=== PATIENT | female | born 1980 | race Caucasian/White ===

== ENCOUNTER 2024-10-16 20:08 | Emergency (ER) | payer MEDICAID ==
[2024-10-16 21:05] LABS: BASOPHILS ABSOLUTE AUTO 0.04 K/uL (0.00-0.10); BASOPHILS PERCENT AUTO 0.5 % (0.1-1.3); EOSINOPHILS ABSOLUTE AUTO 0.15 K/uL (0.00-0.40); EOSINOPHILS PERCENT AUTO 1.9 % (0.0-5.4); HEMATOCRIT 39.1 % (34.3-46.0); HEMOGLOBIN 13.9 g/dL (11.2-15.5); IMMATURE GRAN PERCENT AUTO 0.3 % (0.0-0.7); LYMPHOCYTES PERCENT AUTO 28.5 % (11.4-47.7); MEAN CORPUSCULAR HEMOGLOBIN 33.9 pg (31.6-35.5); MEAN CORPUSCULAR HGB CONC 35.5 g/dL (31.6-35.5); MEAN CORPUSCULAR VOLUME 95.4 fL (81.4-99.0); MONOCYTES ABSOLUTE AUTO 0.54 K/uL (0.20-0.90); NEUTROPHILS ABSOLUTE AUTO 4.78 K/uL (1.0-7.6); NEUTROPHILS PERCENT AUTO 61.8 % (40.0-78.1); PLATELET COUNT,PLT 244 K/uL (130-375); WHITE BLOOD CELL COUNT,WBC 7.7 K/uL (3.2-11.0)
[2024-10-16 21:06] LABS: IMMATURE GRAN ABSOLUTE AUTO 0.02 K/uL (0.00-0.23)
[2024-10-16 21:30] LABS: A/G RATIO 1.1 (1.2-2.2); ALANINE AMINOTRANSFERASE,ALT 21 U/L (12-78); ALBUMIN 3.7 g/dL (3.4-5.0); ALKALINE PHOSPHATASE 85 U/L (46-116); ANION GAP 7.9 mmol/L (5.0-14.0); ASPARTATE AMNIOTRANSFERASE,AST 16 U/L (15-37); BILIRUBIN TOTAL 0.2 mg/dL (0.2-1.0); BLOOD UREA NITROGEN,BUN 14 mg/dL (7-18); CALCIUM 8.4 mg/dL (8.5-10.1); CARBON DIOXIDE,CO2 27 mmol/L (21-32); CHLORIDE,CL 106 mmol/L (100-108); CREATININE 0.8 mg/dL (0.6-1.0); EST CRCL DRUG DOSING (CG) 75.01 mL/min; ESTIMATED GFR 94 mL/min (>60); GLUCOSE RANDOM 101 mg/dL (74-106); POTASSIUM,K 3.8 mmol/L (3.6-5.2); SODIUM,NA 141 mmol/L (140-148); TROPONIN I HIGH SENSITIVITY 4.7 pg/mL (<=60.3)
== END 2024-10-16 22:09 | disposition home or self-care (01) ==
LOC: JP.ED 20:08
DX: R07.89 Other chest pain (principal); Z86.16 Personal history of COVID-19; Z79.899 Other long term (current) drug therapy; Z88.1 Allergy status to other antibiotic agents; Z88.5 Allergy status to narcotic agent; Z88.6 Allergy status to analgesic agent; Z88.8 Allergy status to other drugs, medicaments and biological substances; Z91.040 Latex allergy status; Z91.048 Other nonmedicinal substance allergy status
CPT/HCPCS: 36415; 80053; 84443; 84484; 85025; 99283; 99285